=== PATIENT | female | born 1945 | race Caucasian/White ===

== ENCOUNTER 2021-06-02 12:20 | Outpatient (CLI) | payer MEDICARE, OTHER, SELFPAY ==
--- NOTE | 2021-06-02 12:58 | MM_ITS ---
WS: [id number] BILATERAL SCREENING DIGITAL MAMMOGRAM WITH CAD HISTORY: SCREENING COMPARISON: 03/27/2019, 04/05/2017 Bilateral CC and MLO views submitted. Computer aided detection analyzed. Breast composition: The breasts are heterogeneously dense, which may obscure small masses. No suspici ous masses, microcalcifications or architectural distortion. MM/[place] [id number] IMPRESSION: BI-RADS: 1-Negative FOLLOW UP: 1 Year Follow-up
--- NOTE | 2021-06-02 14:39 | XR_ITS ---
WS: [id number] SCREENING DEXA SCAN [employer] CLINICAL INFORMATION: OSTEOPENIA OF MULTIPLE SITES COMPARISON: 2015 FINDINGS: The L1-L4 bone mineral density measures 1.106 g/cm2. This corresponds to a T score score of -0.6 and Z score of 1.3. Left femoral neck bone mineral density measures 0.704 g/cm2. This corresponds to a T score of -2.4 an d Z score of -0.5. Right femoral neck bone mineral density measures 0.730 g/cm2. This corresponds to a T score -2.2of an d Z score of -0.3. Mean femoral neck bone mineral density measures 0.717 g/cm2. This corresponds to a T score of -2.3 an d Z score of -0.4. XR/XR DEXA axial skeleton* [id number] IMPRESSION: Normal bone mineralization in the lumbar spine. Osteopenia approaching osteopor osis in the femoral necks. Patient's FRAX calculated 10 year probability for major osteoporotic fracture i s 16.7 % and osteoporotic hip fracture is 5.9%.
== END 2021-06-02 12:21 | disposition home or self-care (01) ==
PROVIDERS: PCP Family Medicine; Visit Provider Family Medicine
DX: Z12.31 Encounter for screening mammogram for malignant neoplasm of breast (principal); M85.89 Other specified disorders of bone density and structure, multiple sites
CPT/HCPCS: 77067; 77080

== ENCOUNTER 2022-03-14 08:23 | Emergency (ER) | payer MEDICARE, OTHER, SELFPAY ==
[2022-03-14] VITALS (37 sets, daily range): BP systolic 125–157; BP diastolic 67–105; PULSE 66–141; RESP 13–26; TEMP 36.4; O2SAT 96–99; BMI 20.9
--- NOTE | 2022-03-14 08:32 | ECG_ITS ---
[facility] Test Date: 2022-03-14 Pat Name: Melina Figueroa Department: Room: Gender: Female [employer] Operator: : 1945 Requested By: Jaren Dickinson Order Number: [id number] Emerson MD: Salomon Suarez M.D. Measurements Intervals [place] Rate: 141 P: [place]: QRS: 93 QRSD: 73 T: 0 QT: 184 QTc: 282 Interpretive Statements ATRIAL FLUTTER WITH RAPID VENTRICULAR RESPONSE BORDERLINE RIGHT AXIS DEVIATION [QRS AXIS > 90] POSSIBLE RIGHT VENTRICULAR CONDUCTION DELAY [RSR (QR) IN V1/V2] NONSPECIFIC ST & T-WAVE ABNORMALITY No previous ECG available for comparison Electronically Signed On 03-14-2022 17:19:28 CDT by Salomon Suarez M.D. [id number]
--- NOTE | 2022-03-14 09:21 | XRR_ITS ---
PROCEDURE INFORMATION: Exam: XR Chest Exam date and time: 03/14/2022 9:34 AM Age: 76 years old Clinical indication: Cough and dyspnea; Patient HX: Heart rate issues, had a chest deformity since ; Additional info: Dyspnea/cough TECHNIQUE: Imaging protocol: Radiologic exam of the chest. Views: 1 view. COMPARISON: CT abdomen pelvis w con* [id number] 04/14/2017 12:54 PM FINDINGS: Lungs: Unremarkable. No consolidation. Pleural spaces: Unremarkable. No pleural effusion. No pneumothorax. Heart/Mediastinum: Unremarkable. No cardiomegaly. Bones/joints: Unremarkable. XR/XR chest 1V portable [id number] IMPRESSION: No acute findings.
--- NOTE | 2022-03-14 09:23 | ED_ITS ---
HPI - Arrhythmia/Palpitations General: Chief Complaint: Arrhythmia/Palpitations Stated Complaint: Heart rate issues Time Seen by Provider: 03/14/22 08:34 History of Present Illness: 76-year-old female presents to the emergency room complaint of rapid heart rate. Evidently she has had this several times before. She has some kind of home monitoring system that labels her rhythm with a numerical system she said she has had a number #3 and #4 rhythm. Not familiar with any kind of monitor that labels rhythms by number so not sure what that means. She is having some mild chest discomfort she really associates with a rapid heart rate as well as some shortness of breath with it but no sharp pain no radiating discomfort. She states she has a history of arrhythmias but cannot identify any specific arrhythmias never been told she has atrial fibrillation in the past she has no known history of coronary disease not previously been tested. complaint: rapid heart beat Onset (ago): hour(s) Duration: constant Severity: mild Context: occurred during rest Associated symptoms: Deny anxiety, cough, diaphoresis, muscle cramps, nausea, sense of impending doom, short of breath, syncope or vomiting Review of Systems Const: Denies: diaphoresis ENMT: Denies: throat pain, ear or mastoid pain, nasal discharge or nasal congestion Card: Denies: syncope Resp: Denies: dyspnea, productive cough or non-productive cough GI: Denies: nausea or vomiting : Denies: flank pain, difficulty voiding, dysuria, urinary frequency or urinary urgency Musc: Denies: muscle cramps Skin/Breast: Denies: rash or pruritus Psych: Denies: anxiety PFSH ED PFSH: Medical History Anxiety GERD (gastroesophageal reflux disease) PAC (premature atrial contraction) Pectus excavatum Family History Mother Stroke Father Stroke Other Carotid artery disease Diabetes Social History Smoking and tobacco status: never smoked Alcohol intake: never Physical Exam Const: COMMON NORMALS: no acute distress GENERAL APPEARANCE: cooperative and comfortable ORIENTATION/CONSCIOUSNESS: Yes awake, Yes oriented to person, Yes oriented to place and Yes oriented to time HENMT: COMMON NORMALS: normocephalic, atraumatic and hearing grossly normal bilaterally HEAD & SCALP: normocephalic and atraumatic Resp: COMMON NORMALS: normal respiratory effort, No retractions, No use of accessory muscles and clear to auscultation bilaterally AUSCULTATION: clear to auscultation bilaterally Cardio: COMMON NORMALS: No murmurs present (Cardio) RATE: tachycardic RHYTHM: abnormal rhythm irregularly irregular GI: COMMON NORMALS: Soft to palpation and No hepatosplenomegaly present AUSCULTATION: Yes normoactive bowel sounds PALPATION: Yes Soft to palpation, No Tenderness to palpation present (GI), No Guarding due to palpation present (GI) and Yes No hepatosplenomegaly present Extremity: COMMON NORMALS: normal to inspection, capillary refill normal, no clubbing, cyanosis or edema, no calf tenderness and no pedal edema Neuro: SENSORIUM/ORIENTATION: Yes oriented to person, Yes oriented to place and Yes oriented to time Skin: COMMON NORMALS: no rashes or lesions noted GENERAL SKIN EXAM: no rashes or lesions noted Course Vital Signs: Vital signs: Vital Signs Temperature 97.5 F L 03/14/22 08:34 Pulse Rate 71 03/14/22 11:10 Respiratory Rate 14 03/14/22 11:10 Blood Pressure 134/72 03/14/22 11:10 Pulse Oximetry 98 03/14/22 11:10 Oxygen Delivery Me thod 03/14/22 10:37 MDM - Arrhythmia/Palpitations Medical Decision Making Converted with a single dose of IV push diltiazem and remained in normal rhythm. Discussed with Dr. Metzger on-call for cardiology. It is recommended that she start on Eliquis. She is given a dose of Lovenox here recommend starting the Eliquis this evening's dose. She is also given her first dose of p.o. long- acting Cardizem 120 mg in the emergency room. We will discharge the patient home Dr. Metzger agreed to see the patient within the next few days in the office. She is to return if she has a recurrence of uncontrolled irregular heart rate. Medical Records I reviewed the patient's medical records. Lab Data I reviewed the patient's lab results. : 03/14/22 09:15 03/14/22 09:15 Radiology Impressions Chest X-Ray 03/14/22 09:21 IMPRESSION: No acute findings. Laboratory Results WBC 6.2 10^3/uL (4.0-10.0) 03/14/22 09:15 RBC 4.84 10^6/uL (4.1-5.3) 03/14/22 09:15 Hgb 14.0 g/dL (11.5-15.3) 03/14/22 09:15 Hct 42.8 % (37.0-47.0) 03/14/22 09:15 MCV 88.4 fl (81-99) 03/14/22 09:15 MCH 28.9 pg (28.0-34.0) 03/14/22 09:15 MCHC 32.7 g/dL (30.0-36.0) 03/14/22 09:15 RDW 12.9 % (12.1-15.1) 03/14/22 09:15 Plt Count 251 10^3/cmm (130-400) 03/14/22 09:15 MPV 9.0 fL (7.4-10.4) 03/14/22 09:15 Neut % (Auto) 79.0 % 03/14/22 09:15 Lymph % (Auto) 13.7 % 03/14/22 09:15 [place] % (Auto) 6.3 % 03/14/22 09:15 Eos % (Auto) 0.2 % 03/14/22 09:15 Baso % (Auto) 0.5 % 03/14/22 09:15 Neut # (Auto) 4.92 10^3/uL (1.8-7.7) 03/14/22 09:15 Lymph # (Auto) 0.9 10^3/uL (0.8-4.8) 03/14/22 09:15 [place] # (Auto) 0.4 10^3/uL (0.2-0.9) 03/14/22 09:15 Eos # (Auto) 0.0 10^3/uL (0.0-0.8) 03/14/22 09:15 Baso # (Auto) 0.0 10^3/uL (0.0-0.1) 03/14/22 09:15 Nucleated RBC % (auto) 0 % 03/14/22 09:15 Nucleated RBCs # 0.0 /100WBC 03/14/22 09:15 Sodium 136 mmol/L (136-145) 03/14/22 09:15 Potassium 4.4 mmol/L (3.5-5.1) 03/14/22 09:15 Chloride 100 mmol/L (98-107) 03/14/22 09:15 Carbon Dioxide 26 mmol/L (22-29) 03/14/22 09:15 Anion Gap 14.4 (5-19) 03/14/22 09:15 BUN 16 mg/dL (8-23) 03/14/22 09:15 Creatinine 0.7 mg/dL (0.5-0.9) 03/14/22 09:15 GFR Calculation Not Reportable 03/14/22 09:15 Glucose 111 mg/dL (65-115) 03/14/22 09:15 Calculated Osmolality 284 mOsm/kg (285-295) L 03/14/22 09:15 Calcium 9.6 mg/dL (8.5-10.5) 03/14/22 09:15 Total Bilirubin 0.4 mg/dL (0.15-1.2) 03/14/22 09:15 AST 30 U/L (0-32) 03/14/22 09:15 ALT 22 U/L (0-33) 03/14/22 09:15 Alkaline Phosphatase 76 U/L (35-105) 03/14/22 09:15 Troponin T Baseline 17 ng/L (0-10) H 03/14/22 09:15 Troponin T 120 Minute 16.69 ng/L (0-10) H 03/14/22 10:48 Delta Troponin T -0.31 ABS# (0-10) L 03/14/22 10:48 Total Protein 7.7 g/dL (6.6-8.7) 03/14/22 09:15 Albumin 4.6 g/dL (3.5-5.2) 03/14/22 09:15 Globulin 3.1 g/dL (1.3-4.6) 03/14/22 09:15 Urine Color Straw (Yellow) 03/14/22 09:47 Urine Appearance Clear (CLEAR) 03/14/22 09:47 Urine pH 7 (5-7) 03/14/22 09:47 Ur Specific Roll 1.010 (1.005-1.030) 03/14/22 09:47 Urine Protein Neg (Negative) 03/14/22 09:47 Urine Glucose (UA) Norm (Normal) 03/14/22 09:47 Urine Ketones 1+ (Negative) H 03/14/22 09:47 Urine Blood 2+ (Negative) H 03/14/22 09:47 Urine Nitrate Negative (Negative) 03/14/22 09:47 Urine Bilirubin Neg (Negative) 03/14/22 09:47 Urine Urobilinogen Norm mg/dL (Negative) 10 09:47 Ur Leukocyte Esterase Negative (Negative) 03/14/22 09:47 Urine RBC 5-10 /hpf (0-2) H 03/14/22 09:47 Urine WBC None /hpf (0-5) 03/14/22 09:47 Ur Squamous Epith Cells Rare /hpf (0-5) 03/14/22 09:47 Amorphous Sediment Not Reportable 03/14/22 09:47 Urine Bacteria Trace /hpf (NONE) 03/14/22 09:47 Discharge Plan Discharge Patient Disposition: Home Clinical Impression: Atrial fibrillation Condition: Stable Prescriptions: New Eliquis 5 mg tablet 5 mg PO BID Qty: 60 0RF diltiazem HCl 120 mg capsule,extended release 24hr 120 mg PO Q24H Qty: 30 0RF No Action alprazolam [Xanax] 0.25 mg tablet 0.25 mg PO TID PRN (Reason: Anxiety) Vitamin C 500 mg Tablet Extended Release 500 mg PO DAILY magnesium 200 mg Tablet 200 mg PO DAILY Vitamin D3 25 mcg (1,000 unit) Tablet 25 mcg PO DAILY Discharge Orders: Discharge ED (Routine); Ordered 03/14/22 Ordered By: Jaren Lees Referrals: Joann Prieto DO [Primary Care Provider] - Discharge Diet: Usual diet Discharge Activity: Limit activity as instructed Patient Instructions: A-fib (Atrial Fibrillation) (ED), Opioid Safety, Pain Management Activity Restrictions/Additional Instructions: You were seen seen for atrial fibrillation in the emergency room. That is in a irregular heart rate. Because of the increased risk of stroke it is recommended that you started on anticoagulation, Eliquis 5 mg twice a day. To control the heart rate is recommended started on diltiazem 120 mg once daily. The first dose of diltiazem was given in the emergency room he can start the prescription you were given tomorrow. You should start the Eliquis this evening. I discussed your case with Dr. Metzger one of the full time babysitter and they will see you in the cardiology clinic within the next few days. consulting solution manager will make arrangements for the appointment. If you have chest pain or symptoms of persistent rapid heart rate return to the emergency room. Coding Level of Care Code ED Indoor Landscaper/Gardener for Anil Mariee
[2022-03-14 09:31] LABS: Basophils % 0.5 %; Eosinophils % 0.2 %; Hematocrit 42.8 % (37.0-47.0); Lymphocytes # 0.9 10^3/uL (0.8-4.8); Lymphocytes % 13.7 %; Mean Corpuscular HGB Conc 32.7 g/dL (30.0-36.0); Mean Corpuscular Hemoglobin 28.9 pg (28.0-34.0); Mean Corpuscular Volume 88.4 fl (81-99); Monocytes # 0.4 10^3/uL (0.2-0.9); Monocytes % 6.3 %; Neutrophils # 4.92 10^3/uL (1.8-7.7); Nucleated Red Blood Cells % 0 %; Platelet Count 251 10^3/cmm (130-400); Red Blood Count 4.84 10^6/uL (4.1-5.3); Red Cell Distribution Width 12.9 % (12.1-15.1); White Blood Count 6.2 10^3/uL (4.0-10.0)
[2022-03-14] MEDS: dilTIAZem 5 mg/mL SDV 5 mL 20 MG IVP (09:35)
[2022-03-14 09:51] LABS: Alanine Aminotransferase 22 U/L (0-33); Albumin Level 4.6 g/dL (3.5-5.2); Alkaline Phosphatase 76 U/L (35-105); Anion Gap 14.4 (5-19); Aspartate Amino Transferase 30 U/L (0-32); Blood Urea Nitrogen 16 mg/dL (8-23); Calcium 9.6 mg/dL (8.5-10.5); Carbon Dioxide 26 mmol/L (22-29); Chloride 100 mmol/L (98-107); Creatinine Clr Calc Pharmacy 55.8798; Globulin 3.1 g/dL (1.3-4.6); Glucose 111 mg/dL (65-115); Osmolality Calculated 284 mOsm/kg (285-295); Potassium 4.4 mmol/L (3.5-5.1); Sodium 136 mmol/L (136-145); Total Bilirubin 0.4 mg/dL (0.15-1.2); Total Protein 7.7 g/dL (6.6-8.7)
[2022-03-14 09:53] LABS: Troponin(5th) Baseline 17 ng/L (0-10)
--- NOTE | 2022-03-14 10:10 | ECG_ITS ---
[facility] Test Date: 2022-03-14 Pat Name: Melina Figueroa Department: Room: Gender: Female Supervisor [employer]: : 1945 Requested By: Jaren Dickinson Order Number: [id number] Emerson MD: Salomon Suarez M.D. Measurements Intervals [place] Rate: 72 P: 65 [place]: 192 QRS: 78 QRSD: 81 T: 89 QT: 344 QTc: 379 Interpretive Statements SINUS RHYTHM WITH SINUS ARRHYTHMIA NONSPECIFIC T-WAVE ABNORMALITY Compared to ECG 03/14/2022 08:32:29 Atrial flutter no longer present T-wave abnormality still present Electronically Signed On 03-14-2022 17:24:04 CDT by Salomon Suarez M.D. [id number]
[2022-03-14] MEDS: enoxaparin 60 mg/0.6 mL Syringe SUBCUT (10:33)
--- NOTE | 2022-03-14 10:36 | PC.NURSE ---
Patient is on continuous CM and SP02 at bedside.
[2022-03-14 11:05] LABS: Add Urine Microscopic? YES; Bacteria Urine TRACE /hpf; Bilirubin Urine Neg (Negative); Blood Urine 2+ (Negative); Glucose Urine UA Norm (Normal); Ketones Urine 1+ (Negative); Leukocyte Esterase Urine Negative (Negative); Nitrate Urine Negative (Negative); Protein Urine Neg (Negative); Squamous Epithelial Cell Urine RARE /hpf (0-5); Urine Appearance Clear (CLEAR); Urine Color Straw (Yellow); Urobilinogen Urine Norm (Negative); pH Urine 7 (5-7)
[2022-03-14 11:06] LABS: Add Urine Culture? No
[2022-03-14 11:41] LABS: Troponin 5 2HR 16.69 ng/L (0-10); Troponin 5 2HR Delta -0.31 ABS# (0-10)
[2022-03-14] MEDS: dilTIAZem ER (24HR) 120 mg Capsule PO (12:05)
--- NOTE | 2022-03-14 12:09 | DCPLANNER ---
Addendum entered by Anna Porter 05/27/22 14:26: Patient had a follow up appointment scheduled with heart care - patient did attend appointment. Original Note: retirement village manager was asked to schedule a follow up appointment for patient with heart care, Dr. Metzger. retirement village manager called heart care, spoke with , gave clinic patients information, a follow up appointment was scheduled for , March 17, 2022 at 2:[address] Veloz. retirement village manager informed ER physician and patient with appointment information.
== END 2022-03-14 12:07 | disposition home or self-care (01) ==
PROVIDERS: Emergency Provider Family Medicine; PCP Family Medicine
DX: I48.91 Unspecified atrial fibrillation (principal)
CPT/HCPCS: 36415; 71045; 80053; 81001; 84484; 85025; 93005; 96372; 96374; 99285; J1650; J3490

== ENCOUNTER → 2022-03-17 14:51 | Outpatient (BNVA) | payer MEDICARE, OTHER, SELFPAY | PROVIDERS: PCP Family Medicine; Visit Provider Internal Medicine Cardiovascular Disease | DX: I48.92 Unspecified atrial flutter (principal); I49.1 Atrial premature depolarization; Q67.6 Pectus excavatum | CPT/HCPCS: 99214 ==

== ENCOUNTER 2022-08-25 12:47 | Outpatient (CLI) | payer MEDICARE, OTHER, SELFPAY ==
--- NOTE | 2022-08-25 13:18 | MM_ITS ---
WS: [id number] BILATERAL 3D TOMOSYNTHESIS DIGITAL SCREENING MAMMOGRAPHY WITH CAD CLINICAL INFORMATION: SCREENING HISTORY: Screening mammogram. No current complaints. COMPARISON: June 02, 2021 TECHNIQUE: Bilateral CC and MLO views. FINDINGS: The breasts are composed of heterogeneous fibroglandular density tissue, which can limit the detectio n of small underlying mass lesions. No suspicious mass, asymmetry, calcifications, or architectural d istortion. No evidence of malignancy. Incidental punctate calcifications. Vascular calcification. MM/[place] [id number] IMPRESSION: BI-RADS: 2-Benign FOLLOW UP: 1 Year Follow-up Recommend return to annual screening mammography.
== END 2022-08-25 12:48 | disposition home or self-care (01) ==
LOC: RAD 12:54
PROVIDERS: PCP Family Medicine; Visit Provider Family Medicine
DX: Z12.31 Encounter for screening mammogram for malignant neoplasm of breast (principal)
CPT/HCPCS: 77063; 77067

== ENCOUNTER → 2023-05-04 12:08 | Outpatient (BNVA) | payer MEDICARE, OTHER, SELFPAY | PROVIDERS: PCP Family Medicine; Visit Provider Internal Medicine Cardiovascular Disease | DX: I48.92 Unspecified atrial flutter (principal); I49.1 Atrial premature depolarization; Z79.01 Long term (current) use of anticoagulants | CPT/HCPCS: 99214 ==

== ENCOUNTER → 2023-11-02 12:21 | Outpatient (BNVA) | payer MEDICARE, OTHER, SELFPAY | PROVIDERS: PCP Family Medicine; Visit Provider Internal Medicine Cardiovascular Disease | DX: I49.1 Atrial premature depolarization (principal); I48.92 Unspecified atrial flutter; Z79.01 Long term (current) use of anticoagulants; Q67.6 Pectus excavatum | CPT/HCPCS: 99214 ==

== ENCOUNTER → 2024-05-08 13:59 | Outpatient (BNVA) | payer MEDICARE, OTHER, SELFPAY | PROVIDERS: PCP Family Medicine; Visit Provider Internal Medicine Cardiovascular Disease | DX: I48.92 Unspecified atrial flutter (principal); I48.91 Unspecified atrial fibrillation; Z79.01 Long term (current) use of anticoagulants | CPT/HCPCS: 99213 ==

== ENCOUNTER 2024-05-24 10:23 | Outpatient (CLI) | payer MEDICARE, OTHER, SELFPAY ==
--- NOTE | 2024-05-24 10:30 | MM_ITS ---
WS: [id number] BILATERAL SCREENING DIGITAL TOMOSYNTHESIS MAMMOGRAM WITH CAD HISTORY: SCREENING COMPARISON: 08/25/2022, 06/02/2021 Bilateral CC and MLO views with tomosynthesis and synthetic mammography submitted. Computer aided det ection analyzed. Breast composition: The breasts are extremely dense, which lowers the sensitivity of mammography. No suspicious masses, microcalcifications or architectural distortion. MM/MM scr BI tomosynthesis [id number] IMPRESSION: BI-RADS: 1 - Negative FOLLOW UP: 1 Year Follow-up
== END 2024-05-24 10:24 | disposition home or self-care (01) ==
LOC: RAD 10:24
PROVIDERS: PCP Family Medicine; Visit Provider Family Medicine
DX: Z12.31 Encounter for screening mammogram for malignant neoplasm of breast (principal); R92.333 Mammographic heterogeneous density, bilateral breasts
CPT/HCPCS: 77063; 77067

== ENCOUNTER 2025-01-31 12:39 | Outpatient (CLI) | payer MEDICARE, OTHER, SELFPAY ==
--- NOTE | 2025-01-31 12:50 | XR_ITS ---
WS: [id number] SCREENING DEXA SCAN [employer] CLINICAL INFORMATION: OSTEOPENIA OF MULTIPLE SITES COMPARISON: 2021 FINDINGS: The L1-L4 bone mineral density measures 1.024 g/cm2. This corresponds to a T score score of -1.3 and Z score of 0.7. Left femoral neck bone mineral density measures 0.678 g/cm2. This corresponds to a T score of -2.6 and Z score of -0.5. Right femoral neck bone mineral density measures 0.666 g/cm2. This corresponds to a T score -2.7of and Z score of -0.6. Mean femoral neck bone mineral density measures 0.672 g/cm2. This corresponds to a T score of -2.7 and Z score of -0.5. XR/XR DEXA axial skeleton* [id number] IMPRESSION: Osteopenia lumbar spine. Osteoporosis femoral necks. Patient's FRAX calculated 10 year probability for major osteoporotic fracture i s 18.0% and osteoporotic hip fracture is 6.7%. Bone density lumbar spine decreased -7.4% Bone density femoral necks decreased -6.3%
== END 2025-01-31 12:40 | disposition home or self-care (01) ==
PROVIDERS: PCP Family Medicine; Visit Provider Family Medicine
DX: Z13.820 Encounter for screening for osteoporosis (principal); M85.89 Other specified disorders of bone density and structure, multiple sites; M85.88 Other specified disorders of bone density and structure, other site; M81.0 Age-related osteoporosis without current pathological fracture
CPT/HCPCS: 77080

== ENCOUNTER → 2025-03-25 09:48 | Outpatient (BNVA) | payer MEDICARE, OTHER, SELFPAY | PROVIDERS: PCP Family Medicine; Visit Provider Nurse Practitioner Family | DX: L57.8 Other skin changes due to chronic exposure to nonionizing radiation (principal); L81.4 Other melanin hyperpigmentation; L82.1 Other seborrheic keratosis; D18.01 Hemangioma of skin and subcutaneous tissue; L72.0 Epidermal cyst; L82.0 Inflamed seborrheic keratosis; R20.8 Other disturbances of skin sensation; Z78.9 Other specified health status; L29.89 Other pruritus; R58 Hemorrhage, not elsewhere classified; L53.8 Other specified erythematous conditions; L57.0 Actinic keratosis | CPT/HCPCS: 17000; 17110; 99203 ==

== ENCOUNTER → 2025-05-12 09:04 | Outpatient (BNVA) | payer MEDICARE, OTHER, SELFPAY | PROVIDERS: PCP Family Medicine; Visit Provider Internal Medicine Cardiovascular Disease | DX: I48.91 Unspecified atrial fibrillation (principal); B34.9 Viral infection, unspecified; Z79.01 Long term (current) use of anticoagulants | CPT/HCPCS: 99214 ==